=== PATIENT | male | born 1985 | race Caucasian/White ===

== ENCOUNTER 2023-04-28 15:56 | Emergency (ER) | payer BC ==
[2023-04-28 16:23] VITALS: BP 143/94; PULSE 86; RESP 17; TEMP 97.9; O2SAT 98
--- NOTE | 2023-04-28 16:47 | XRAY ---
Indication: Pain following fall. Comparison: August 13, 2011. 3 view left elbow again demonstrates normal bones, articulation, and soft tissues.
--- NOTE | 2023-04-28 16:49 | XRAY ---
Indication: Left hip pain following fall. Multiple contiguous axial images obtained through the pelvis with special attention to the osseous structures. Sagittal and coronal reformatted images obtained. Comparison: None No acute fracture or dislocation. Right femur head demonstrates 6 mm bone island. SI joints bilaterally symmetric. Visualized noncontrasted soft tissues demonstrates minimal iliac calcifications and previous appendectomy. Impression: Tiny right femur head bone island and minimal arteriosclerotic disease. Remaining CT pelvis without contrast exam is normal.
--- NOTE | 2023-04-28 17:08 | ERPHSYRPT ---
- History of Present Illness Source: patient Exam Limitations: no limitations Patient Subjective Stated Complaint: C/O pain to left elbow, left forearm, left hip after a fall 4 days ago. Triage Nursing Assessment: Patient ambulated back to ER. He is alert and oriented. No SOB. SKin tone normal; no bruising noted to areas of pain. No external rotation noted to BLE. LLE is slightly shorter than the RLE. Radial pulse present to left wrist. Patient sitting up in bed with his right leg crossed over his left leg at the ankles per himself. Physician History: 38 yo WM states that he fell at [place] 4 days ago and also today complains of L olecranon pain and L hip pain. Pain is 4/10 and worse w movement. He denies other injuries, including head injury/cervical injury/chest injury/abdominal injury/back injury. Occurred: other (4 days ago and today) Reason for Fall: tripped Injuries/Pain Location: upper extremity, pelvis Loss of Consciousness: no loss of consciousness Quality: aching Severity of Pain-Max: severe Severity of Pain-Current: moderate Modifying Factors: Improves With: movement Associated Symptoms (Fall): extremity injury Allergies/Adverse Reactions: No Known Drug Allergies Allergy (Verified 04/28/23 16:06) Home Medications: Ergocalciferol (Vitamin D2) [Vitamin D2] 1 cap PO WEEKLY 04/28/23 [History] Hx Tetanus, Diphtheria Vaccination/Date Given: Yes Hx Influenza Vaccination/Date Given: No Hx Pneumococcal Vaccination/Date Given: No Immunizations Up to Date: Yes Travel Risk - International Travel Have you traveled outside of the country in past 3 weeks: No - Coronavirus Screening Are you exhibiting any of the following symptoms?: No Close contact with a COVID-19 positive Pt in past 14-21 Days: No - Vaccine Status Have you recieved a Covid-19 vaccination: No - Review of Systems Constitutional: No Symptoms Eyes: No Symptoms Ears, Nose, & Throat: No Symptoms Respiratory: No Symptoms Cardiac: No Symptoms Abdominal/Gastrointestinal: No Symptoms Genitourinary Symptoms: No Symptoms Skin: No Symptoms Neurological: No Symptoms Psychological: No Symptoms Endocrine: No Symptoms Hematologic/Lymphatic: No Symptoms Immunological/Allergic: No Symptoms - Past Medical History Pertinent Past Medical History: Yes Musculoskeletal History: Fractures, Osteoporosis Psycho-Social History: Depression Other Medical History: Myocarditis, compression fracture in back - Past Surgical History Past Surgical History: Yes Gastrointestinal: Appendectomy Other Surgical History: Back surgery X 2 - Social History Smoking Status: Current every day smoker How long have you smoked: 26 years Exposure to second hand smoke: No Drug Use: none Patient Lives Alone: No - Nursing Vital Signs Nursing Vital Signs: Initial Vital Signs Temperature 97.9 F 04/28/23 16:07 Pulse Rate 86 04/28/23 16:07 Respiratory Rate 17 04/28/23 16:07 Blood Pressure 143/94 04/28/23 16:07 O2 Sat by Pulse Oximetry 98 04/28/23 16:07 Pain Scale Pain Intensity 4 Hypertensive - [place] Coma Score Best Eye Response ([place]): (4) open spontaneously Best Verbal Response ([place]): (5) oriented Best Motor Response ([place]): (6) obeys commands [place] Total: 15 - Physical Exam General Appearance: no apparent distress Head Injury: no evidence of injury Eye Exam: PERRL/EOMI, eyes nml inspection ENT Exam: airway nml, evidence of ENT injury, No clear fluid (ears), No clear fluid (nose) Neck Exam: supple, trachea midline, normal inspection (C-spine NTTP) Respiratory/Chest Exam: normal breath sounds, No chest tenderness, No respiratory distress Cardiovascular Exam: normal heart sounds, regular rate/rhythm, No murmur Gastrointestinal Exam: soft, normal bowel sounds Back Exam: normal inspection, No vertebral tenderness Extremity Exam: pelvis stable (L Hip moderately TTP/L olecranon mild TTP/Good pedal and radial pulse/Good distal capillary return and sensation) Peripheral Pulses: dorsalis-pedis (R): 2+, dorsalis-pedis (L): 2+ Neurologic Exam: alert, oriented x 3, cooperative, advanced registered nurse II-XII nml as tested, normal mood/affect, nml station & gait, sensation nml Skin Exam: normal color, warm, dry SpO2 Interpretation: normal SpO2: 98 O2 Delivery: Room Air - Course Nursing assessment & vital signs reviewed: Yes - Radiology Exams Elbow X-ray Interpretation: Reviewed by me (L olecranon neg per rad) - CT Exams Pelvis CT Interpretation: Discussed w/radiologist (Neg per Rad) Ordered Tests: Active Orders 24 hr Category Date Time Status Lopez Bandage Application -[facility] STAT Care 04/28/23 17:36 Completed ELBOW (MINIMUM 3 VIEWS) Stat Exams 04/28/23 16:18 Completed PELVIS WITHOUT CONTRAST [CT] Stat Exams 04/28/23 16:17 Completed - Progress Progress Note: 04/29/23 05:15 Nursing note and vital signs reviewed No food or housing insecurities noted CT pelvis result reviewed and shared w pt XR L Olecranon reviewed and shared w pt Lopez wrap L olecranon per nursing/NVI Sling LUE per nursing/NVI Pt refused all pain meds during stay 04/29/23 05:17 04/29/23 05:19 04/29/23 05:20 Counseled pt/family regarding: diagnosis, need for follow-up, rad results Medical Desision Making - Diagnostic Testing Radiological Interpretation: Reviewed by me - Risk of complications The pt has a mod risk of morbidity or mortality based on: Need for prescription drug management - Departure Departure Disposition: Home Clinical Impression: Contusion of left hip, Elbow contusion Condition: Stable Critical Care Time: No Referrals: DOCTOR,NO FAMILY [Primary Care Provider] - Follow up/PCP as directed Instructions: Contusion (DC) Additional Instructions: Lopez wrap for 2-3 days Ice for 12-24 hours Etodolac as needed for pain Follow up with your family MD or orthopedic clinic M-Fr 8-10AM Forms: Work/School Release Form Prescriptions: Etodolac 400 mg [Lodine 400 mg] 400 mg PO BID PRN PRN #12 tablet PRN Reason: Pain
== END 2023-04-28 17:55 | disposition home or self-care (01) ==
LOC: ED 15:56
DX: S50.02XA Contusion of left elbow, initial encounter (principal); S70.02XA Contusion of left hip, initial encounter; W19.XXXA Unspecified fall, initial encounter; Z28.310 Unvaccinated for COVID-19; Z72.0 Tobacco use
CPT/HCPCS: 72192; 73080; 99283

== ENCOUNTER 2024-10-09 18:42 | Emergency (ER) | payer BC ==
[2024-10-09 19:01] VITALS: TEMP 97.7
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
[2024-10-09] MEDS ORDERED: TORAdol 30 mg Injection ONE (19:59)
[2024-10-09] MEDS ORDERED: Norflex 60 MG/2 ML ONE (20:00)
[2024-10-09] MEDS: Norflex 60 MG/2 ML IM ONE (20:01)
[2024-10-09] MEDS: TORAdol 30 mg Injection IM ONE (20:01)
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
[2024-10-09 20:26] VITALS: BP 132/76; PULSE 74; RESP 16; O2SAT 99
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
== END 2024-10-09 20:15 | disposition home or self-care (01) ==
LOC: ED 18:42
DX: S80.11XA Contusion of right lower leg, initial encounter (principal); V89.2XXA Person injured in unspecified motor-vehicle accident, traffic, initial encounter; M79.661 Pain in right lower leg; M54.6 Pain in thoracic spine; R07.81 Pleurodynia; Z79.899 Other long term (current) drug therapy; Z72.0 Tobacco use
CPT/HCPCS: 71100; 72072; 73590; 96372; 99285; J1885; J2360